=== PATIENT | female | born 1970 | race Native Hawaiian/Other Pacific Islander ===

== ENCOUNTER 2019-04-02 10:37 | Emergency (ER) | payer OTHER ==
[~2019-04-02] VITALS: Ht 170.2 cm; Wt 90.7 kg
[2019-04-02 10:42] VITALS: TEMP 97.7
[2019-04-02] MEDS ORDERED: CYCL10TA35 PO (11:07)
[2019-04-02] MEDS ORDERED: COZAAR100 MG PO (11:08)
[2019-04-02] MEDS ORDERED: GABA300C2 PO (11:08)
[2019-04-02] MEDS ORDERED: METO25TA4 PO (11:09)
[2019-04-02] MEDS ORDERED: LEVO0.1T6 PO (11:09)
[2019-04-02] MEDS ORDERED: CELEXA40 MG PO (11:10)
[2019-04-02 11:11] LABS: PLATELET COUNT 427 K/uL (152-353)
[2019-04-02 12:44] VITALS: BP 172/80
== END 2019-04-02 12:46 | disposition home or self-care (01) ==
LOC: ED 10:37
PROVIDERS: Hospitalist
DX: M54.5 Low back pain (principal); G89.29 Other chronic pain; D25.9 Leiomyoma of uterus, unspecified
CPT/HCPCS: 36415; 80053; 81000; 81025; 82150; 83690; 85027; 96360; 96365; 96374; 96375; 99284; J1170; J1885; J2270; J2405